=== PATIENT | female | born 1995 | race Caucasian/White ===

== ENCOUNTER 2016-10-02 17:04 | Inpatient (IN) | payer BC, MEDICAID ==
[2016-10-02] MEDS ORDERED: Carboprost Tromethamine 250 MCG/1 ML Amp IM PRN (17:15)
[2016-10-02] MEDS ORDERED: Lidocaine 1% 50 ML MDV INJECT PRN (17:15)
[2016-10-02] MEDS ORDERED: Sodium Chloride 0.9% 2.5 ML Syringe FLUSH PRN (17:15)
[2016-10-02] MEDS ORDERED: Butorphanol 1 MG/ML SDV IVPUSH PRN (17:15)
[2016-10-02] MEDS ORDERED: Misoprostol 200 MCG Tab PO PRN (17:15)
[2016-10-02] MEDS ORDERED: Sodium Chloride 0.9% 10 ML Syringe FLUSH PRN (17:15)
[2016-10-02] MEDS ORDERED: Nalbuphine 10 MG/1 ML Vial IVPUSH PRN (17:15)
[2016-10-02] MEDS ORDERED: Water For Irrigation,Sterile 1,000 ML Container IRR PRN (17:15)
[2016-10-02] MEDS ORDERED: Methylergonovine 0.2 MG/1 ML Amp IM PRN (17:15)
[2016-10-02] MEDS ORDERED: Oxytocin/Lactated Ringers 30 UNIT/500 ML BAG IV SCH ×2 (17:15→19:30)
[2016-10-02] MEDS: Lactated Ringers 1,000 ML IV SCH ×2 (19:35→23:10)
[2016-10-02] MEDS ORDERED: fentaNYL 100 MCG/2 ML SDV ONE (23:03)
[2016-10-02] MEDS ORDERED: Ropivacaine HCl/PF 100 ML ONE (23:03)
--- NOTE | 2016-10-03 00:01 | PCM.PREANE ---
Preanesthetic Assessment - Anesthesia/Transfusion/Family Hx Anesthesia History: No Prior Anesthesia Transfusion History: No Prior Transfusion(s) - Physical Assessment Height: 5 ft 3.5 in Weight: 150 lb ASA Class: 2 Mental Status: Alert & Oriented x3 Airway Class: Mallampati = 2 Dentition: Reports: Normal Dentition ROM/Head Extension: Full Lungs: Clear to auscultation, Normal respiratory effort Cardiovascular: Regular Rate, Regular Rhythm - Lab Values: Laboratory Last Values WBC 9.34 K/uL (4.0-11.0) 10/02/16 17:30 RBC 4.02 M/uL (4.30-5.90) L 10/02/16 17:30 Hgb 12.0 g/dL (12.0-16.0) 10/02/16 17:30 Hct 36.1 % (36.0-46.0) 10/02/16 17:30 MCV 89.8 fL (80.0-98.0) 10/02/16 17:30 MCH 29.9 pg (27.0-32.0) 10/02/16 17:30 MCHC 33.2 g/dL (31.0-37.0) 10/02/16 17:30 RDW Std Deviation 41.6 fl (28.0-62.0) 10/02/16 17:30 RDW Coeff of Mell 13 % (11.0-15.0) 10/02/16 17:30 Plt Count 246 K/uL (150-400) 10/02/16 17:30 MPV 10.40 fL (7.40-12.00) 10/02/16 17:30 Nucleated RBC % 0.0 /100WBC 10/02/16 17:30 Nucleated RBCs # 0 K/uL 10/02/16 17:30 Blood Type B POSITIVE 10/02/16 17:30 Antibody Screen POSITIVE 10/02/16 17:30 Prewarmed Antibody Srcn NEGATIVE 10/02/16 17:30 Antibody Identification Cancelled 10/02/16 17:30 Cold Antibody Screen POSITIVE 10/02/16 17:30 - Allergies Allergies/Adverse Reactions: Allergies Allergy/AdvReac Type Severity Reaction Status Date / Time No Known Allergies Allergy Verified 05/04/14 15:43 - Blood Blood Available: No Product(s) Available: None - Anesthesia Plan Free Text/Narrative:: Labor Epidural Pre-Op Medication Ordered: None - Acknowledgements Anesthesia Type Planned: Epidural Pt an Appropriate Candidate for the Planned Anesthesia: Yes Alternatives and Risks of Anesthesia Discussed w Pt/Guardian: Yes Pt/Guardian Understands and Agrees with Anesthesia Plan: Yes PreAnesthesia Questionnaire HEENT History: Reports: Other (see below) Other HEENT History: Seasonal allergies 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 Hematologic History: Reports: Anemia - Infectious Disease History Infectious Disease History: Reports: Chicken pox, Measles - Past Surgical History HEENT Surgical History: Reports: None - SUBSTANCE USE Smoking Status *Q: Current Every Day Smoker Tobacco Use Within Last Twelve Months: Cigarettes Second Hand Smoke Exposure: Yes Recreational Drug Use History: Yes Recreational Drug Type: Reports: Marijuana/Hashish Recreational Drug Last Use: 10/2015 - CURRENT (IN HOUSE) MEDS Current Meds: Current Medications Butorphanol Tartrate (Stadol) 1 mg IVPUSH Q1H PRN PRN Reason: Pain Last Admin: 10/02/16 22:17 Dose: 1 mg Carboprost Tromethamine (Hemabate Ds) 250 mcg IM ASDIRECTED PRN PRN Reason: Post Hemorrhage Lactated Ringer's (Ringers, Lactated) 1,000 mls @ 150 mls/hr IV ASDIRECTED ASHLY Last Admin: 10/02/16 23:10 Dose: 999 mls/hr Oxytocin/Lactated Ringer's (Pitocin In Lr 30 Units/500 Ml) 30 unit in 500 mls @ 2 mls/hr IV TITRATE ASHLY; 2 MUNITS/MIN PRN Reason: Protocol Last Titration: 10/02/16 21:40 Dose: 10 munits/min, 10 mls/hr Lidocaine HCl (Xylocaine 1%) 50 ml INJECT .ONCE PRN PRN Reason: Laceration repair Methylergonovine Maleate (Methergine) 0.2 mg IM ASDIRECTED PRN PRN Reason: Post Hemorrhage Misoprostol (Cytotec) 200 mcg PO .ONCE PRN PRN Reason: Post Hemorrhage Sodium Chloride (Saline Flush) 10 ml FLUSH ASDIRECTED PRN PRN Reason: Keep Vein Open Sodium Chloride (Saline Flush) 2.5 ml FLUSH ASDIRECTED PRN PRN Reason: Keep Vein Open Sterile Water (Sterile Water For Irrigation) 1,000 ml IRR ASDIRECTED PRN PRN Reason: delivery Discontinued Medications Fentanyl (Sublimaze) Confirm Administered Dose 100 mcg .ROUTE .STK-MED ONE Stop: 10/02/16 23:04 Oxytocin/Lactated Ringer's (Pitocin In Lr 30 Units/500 Ml) 30 unit in 500 mls @ 999 mls/hr IV TITRATE ASHLY PRN Reason: 999 MUNITS/MIN Stop: 10/02/16 17:46 Ropivacaine (Naropin 0.2%) Confirm Administered Dose 100 mls @ as directed .ROUTE .STK-MED ONE Stop: 10/02/16 23:04 Nalbuphine HCl (Nubain) 10 mg IVPUSH Q1H PRN PRN Reason: Pain (severe 7-10) Stop: 10/02/16 19:16
[2016-10-03] MEDS: Lactated Ringers 1,000 ML IV SCH (00:02)
[2016-10-03] MEDS ORDERED: Ondansetron 4 MG/2 ML SDV IVPUSH ONE (06:28)
[2016-10-03] MEDS ORDERED: Ropivacaine HCl/PF 100 ML ONE (07:33)
[2016-10-03] MEDS ORDERED: fentaNYL 100 MCG/2 ML SDV ONE (07:33)
[2016-10-03] MEDS ORDERED: Witch Hazel Medicated Pads 40/Jar TOP PRN (11:05)
[2016-10-03] MEDS ORDERED: Ibuprofen 400 MG Tab PO PRN (11:05)
[2016-10-03] MEDS ORDERED: Bisacodyl 10 MG Supp RECTAL PRN (11:05)
[2016-10-03] MEDS ORDERED: oxyCODONE 5 MG Tab PO PRN (11:05)
[2016-10-03] MEDS ORDERED: Docusate Sodium 100 MG Cap PO PRN (11:05)
[2016-10-03] MEDS ORDERED: Acetaminophen 500 MG Tab PO PRN ×2 (11:05)
[2016-10-03] MEDS ORDERED: Benzocaine/Menthol 20%-0.5% Spray 78 GM Cannister TOP PRN (11:05)
[2016-10-03] MEDS ORDERED: Lanolin 100% Cream 7 GM Tube TOP PRN (11:05)
[2016-10-03] MEDS ORDERED: Oxytocin/Lactated Ringers 30 UNIT/500 ML BAG ONE (11:09)
[2016-10-03] MEDS: Ibuprofen 800 MG Tab PO PRN (12:23)
--- NOTE | 2016-10-03 15:02 | PCM48HPAN ---
Post Anesthesia Note - EVALUATION WITHIN 48HRS OF ANESTHETIC Vital Signs in Normal Range: Yes Patient Participated in Evaluation: Yes Respiratory Function Stable: Yes Airway Patent: Yes Cardiovascular Function Stable: Yes Hydration Status Stable: Yes Pain Control Satisfactory: Yes Nausea and Vomiting Control Satisfactory: Yes Mental Status Recovered: Yes
--- NOTE | 2016-10-03 18:58 | OR ---
SURGEON: Kika Gomez MD DATE OF PROCEDURE: 10/03/2016 PREOPERATIVE DIAGNOSES: 1. Term at 39 weeks and 5 days. 2. Premature rupture of membrane at term. POSTOPERATIVE DIAGNOSES: 1. Term at 39 weeks and 5 days. 2. Premature rupture of membrane at term. 3. Delivered. PROCEDURES: 1. Spontaneous vaginal delivery. 2. Repair of perineal laceration. ANESTHESIA: Epidural. ESTIMATED BLOOD LOSS: 100 mL. COMPLICATIONS: None. DISPOSITION: Mother and baby stable in Labor and Delivery room, bonding. FINDINGS: Female , weight 3200 grams, score 8 and 9 at 1 and 5 minutes respectively. Grossly normal placenta with 3-vessel cord. First-degree vaginal laceration. BRIEF HISTORY: Pearl is a 21-year-old, G2, P0, who presented for routine clinic appointment on the 02 of October at 39 weeks and 4 days gestation, complaining of irregular contractions and requested to have a membrane sweep performed. Spontaneous rupture of membrane occurred during the membrane sweep, at the time , she was 1 cm, 70% effaced, station -2, clear amniotic fluid. Her care has been otherwise uncomplicated. GBS negative. She was then sent over to Labor and Delivery for monitoring. With category 1 tracing, she was allowed to ambulate and after approximately 6 hours after the rupture of membranes, she was re-evaluated and found to have made no cervical change, at which time, oxytocin was commenced for induction of labor. She requested and received epidural for pain management. She made steady progress to full dilatation at about 7:00 a.m. this morning and then commenced pushing after an hour of laboring down. She pushed quite well bringing the baby's head down to a +4 station and was set up for delivery in modified dorsal lithotomy position. heart tracing remained category 1. DESCRIPTION OF PROCEDURE: She had a spontaneous vaginal delivery of a live female in direct occipital posterior position, clear fluid, no nuchal cord. Anterior and posterior shoulders and the rest of the baby were delivered without difficulty. Baby was vigorous and cried spontaneously at . The baby was delivered onto the maternal abdomen. The cord was double clamped after it had ceased pulsating and subsequently cut by the maternal grandmother. With delivery of the , oxytocin infusion was changed to titration for active management of third stage of labor. Cord blood and gas samples were obtained. Placenta was delivered by controlled cord traction, appeared to be complete and intact. Examination of the perineum revealed a small vaginal mucosa laceration, which was repaired with 2-0 Polysorb in a continuous nonlocking fashion. The repair was hemostatic. Uterine massage was performed. The uterus was found to be well contracted, below the umbilicus. The patient tolerated the procedure well. Sponge, instrument, and needle counts were correct at the end of the delivery. ADUMVIV / CHELSIL /[id number] MTDD
[2016-10-04] MEDS: Ibuprofen 800 MG Tab PO PRN (02:55)
[2016-10-04 09:57] VITALS: BP 108/51
--- NOTE | 2016-10-04 12:11 | PCM.PNPP ---
- General Info Date of Service: 10/04/16 Functional Status: Reports: pain controlled, tolerating diet, ambulating, urinating - Review of Systems General: Reports: No Symptoms HEENT: Reports: no symptoms Pulmonary: Reports: no symptoms Cardiovascular: Reports: No Symptoms Gastrointestinal: Reports: No symptoms Genitourinary: Reports: no symptoms Musculoskeletal: Reports: no symptoms Skin: Reports: no symptoms Neurological: Reports: No Symptoms Psychiatric: Reports: no symptoms - General Info Date of Service: 10/04/16 - Patient Data Vital Signs - most recent: Last Vital Signs Temp 36.6 C 10/04/16 07:30 Pulse 64 10/04/16 07:30 Resp 17 10/04/16 07:30 BP 108/51 L 10/04/16 07:30 Pulse Ox 96 10/04/16 07:30 Weight - most recent: 68.039 kg Lab Results - last 24 hrs: Laboratory Results - last 24 hr 10/04/16 Range/Units 06:05 Hgb 10.2 L (12.0-16.0) g/dL Hct 30.9 L (36.0-46.0) % Med Orders - Current: Current Medications Acetaminophen (Tylenol Extra Strength) 500 mg PO Q4H PRN PRN Reason: Pain Acetaminophen (Tylenol Extra Strength) 1,000 mg PO Q4H PRN PRN Reason: Pain Benzocaine/Menthol (Dermoplast Pain Relief 20%-0.5% [place]) 78 gm TOP ASDIRECTED PRN PRN Reason: Perineal Comfort Measure Last Admin: 10/03/16 12:23 Dose: 1 can Bisacodyl (Dulcolax) 10 mg RECTAL .ONCE PRN PRN Reason: Constipation Docusate Sodium (Colace) 100 mg PO BID PRN PRN Reason: Constipation Last Admin: 10/03/16 12:24 Dose: 100 mg Emollient Ointment (Lansinoh Hpa) 0 gm TOP ASDIRECTED PRN PRN Reason: Sore Nipples Last Admin: 10/03/16 12:23 Dose: 1 tube Ibuprofen (Motrin) 400 mg PO Q4H PRN PRN Reason: Pain Ibuprofen (Motrin) 800 mg PO Q6H PRN PRN Reason: Pain Last Admin: 10/04/16 02:55 Dose: 800 mg Oxycodone HCl (Oxycodone) 5 mg PO Q2H PRN PRN Reason: Pain Last Admin: 10/04/16 02:55 Dose: 5 mg Witch Shelley (Tucks) 1 pad TOP ASDIRECTED PRN PRN Reason: comfort care Last Admin: 10/03/16 12:23 Dose: 1 tub Discontinued Medications Butorphanol Tartrate (Stadol) 1 mg IVPUSH Q1H PRN PRN Reason: Pain Last Admin: 10/02/16 22:17 Dose: 1 mg Carboprost Tromethamine (Hemabate Ds) 250 mcg IM ASDIRECTED PRN PRN Reason: Post Hemorrhage Fentanyl (Sublimaze) Confirm Administered Dose 100 mcg .ROUTE .STK-MED ONE Stop: 10/02/16 23:04 Last Admin: 10/03/16 08:50 Dose: Not Given Fentanyl (Sublimaze) Confirm Administered Dose 200 mcg .ROUTE .STK-MED ONE Stop: 10/03/16 07:34 Last Admin: 10/03/16 08:50 Dose: Not Given Lactated Ringer's (Ringers, Lactated) 1,000 mls @ 150 mls/hr IV ASDIRECTED ASHLY Last Admin: 10/03/16 00:02 Dose: 999 mls/hr Oxytocin/Lactated Ringer's (Pitocin In Lr 30 Units/500 Ml) 30 unit in 500 mls @ 999 mls/hr IV TITRATE ASHLY PRN Reason: 999 MUNITS/MIN Stop: 10/02/16 17:46 Last Admin: 10/03/16 11:19 Dose: Not Given Oxytocin/Lactated Ringer's (Pitocin In Lr 30 Units/500 Ml) 30 unit in 500 mls @ 2 mls/hr IV TITRATE ASHLY; 2 MUNITS/MIN PRN Reason: Protocol Last Titration: 10/03/16 08:38 Dose: 16 munits/min, 16 mls/hr Ropivacaine (Naropin 0.2%) Confirm Administered Dose 100 mls @ as directed .ROUTE .STK-MED ONE Stop: 10/02/16 23:04 Last Admin: 10/03/16 08:50 Dose: Not Given Ropivacaine (Naropin 0.2%) Confirm Administered Dose 100 mls @ as directed .ROUTE .STK-MED ONE Stop: 10/03/16 07:34 Last Admin: 10/03/16 08:50 Dose: Not Given Oxytocin/Lactated Ringer's (Pitocin In Lr 30 Units/500 Ml) Confirm Administered Dose 30 unit in 500 mls @ as directed .ROUTE .STK-MED ONE Stop: 10/03/16 11:10 Last Admin: 10/03/16 11:19 Dose: 500 unit Lidocaine HCl (Xylocaine 1%) 50 ml INJECT .ONCE PRN PRN Reason: Laceration repair Methylergonovine Maleate (Methergine) 0.2 mg IM ASDIRECTED PRN PRN Reason: Post Hemorrhage Misoprostol (Cytotec) 200 mcg PO .ONCE PRN PRN Reason: Post Hemorrhage Nalbuphine HCl (Nubain) 10 mg IVPUSH Q1H PRN PRN Reason: Pain (severe 7-10) Stop: 10/02/16 19:16 Ondansetron HCl (Zofran) 4 mg IVPUSH ONETIME ONE Stop: 10/03/16 06:29 Last Admin: 10/03/16 06:34 Dose: 4 mg Sodium Chloride (Saline Flush) 10 ml FLUSH ASDIRECTED PRN PRN Reason: Keep Vein Open Sodium Chloride (Saline Flush) 2.5 ml FLUSH ASDIRECTED PRN PRN Reason: Keep Vein Open Sterile Water (Sterile Water For Irrigation) 1,000 ml IRR ASDIRECTED PRN PRN Reason: delivery Last Admin: 10/03/16 10:40 Dose: 1,000 ml - Infant Interaction Disposition, : in Room with Family Infant Interaction: Holding Feeding: Attempted ; Nursed Fair/Poor - Recovery Exam Fundal Tone: Firm Fundal Level: 1 Fingerbreadths Below Umbilicus Fundal Placement: Midline Lochia Amount: Scant Lochia Color: Rubra/Red Perineum Description: Intact, Minimal Bruising/Swelling, Other (see below) Other Perinuem Description: Small vaginal laceration Episiotomy/Laceration: Approximated Bladder Status: Voiding Urinary Elimination: Voided - Exam General: alert, oriented Neck: supple Lungs: Clear to auscultation, Normal respiratory effort Cardiovascular: Regular Rate, Regular Rhythm Abdomen: bowel sounds present, soft, no tenderness Extremities: no calf tenderness Skin: warm, dry, intact Wound/Incisions: healing well Neurological: no new focal deficit Psy/Mental Status: alert, normal affect, normal mood - Problem List & Annotations (1) Vaginal delivery SNOMED Code(s): 448576114 Code(s): O80 - ENCOUNTER FOR FULL-TERM UNCOMPLICATED DELIVERY Status: Acute Current Visit: Yes - Problem List Review Problem List Initiated/Reviewed/Updated: Yes - My Orders Last 24 Hours: My Active Orders 10/04/16 12:09 Ready for Discharge [RC] PER UNIT ROUTINE - Assessment Assessment:: PPD#1 S/p SAVD Doing well Desires discharge home today - Plan Plan:: Discharge home today with follow up in 6wks Pelvic rest for 6wks Bleeding precautions Infection precautions given Thrombotic precautions blues/depression precautions
== END 2016-10-04 14:35 | disposition home or self-care (01) | DRG 560 ==
LOC: MW.OBCHECK 17:04 → MW.OB 17:10 → MW.OBCHECK 10-03 09:04 → MW.OB 10-03 09:05 → OBSVTOIN 10-03 10:40 → MW.OB 10-03 10:40
PROVIDERS: ADMIT Obstetrics & Gynecology; ATTEND Obstetrics & Gynecology
PROC: 10E0XZZ Delivery of Products of Conception, External Approach (ICD-10-PCS; principal; 2016-10-03)
PROC: 0HQ9XZZ Repair Perineum Skin, External Approach (ICD-10-PCS; 2016-10-03)
DX: O42.02 Full-term premature rupture of membranes, onset of labor within 24 hours of rupture (principal); O70.0 First degree perineal laceration during delivery; Z3A.39 39 weeks gestation of pregnancy; Z37.0 Single live birth
CPT/HCPCS: 01967; 36415; 59025; 85014; 85018; 85027; 86156; 86850; 86900; 86901; A9270-GY; J0595; J2405; J7120

== ENCOUNTER 2019-07-17 20:51 | Inpatient (IN) | payer MEDICAID ==
[2019-07-17] MEDS ORDERED: Butorphanol 1 MG/ML SDV IVPUSH PRN (21:19)
[2019-07-17] MEDS ORDERED: Sodium Chloride 0.9% 10 ML Syringe FLUSH PRN (21:19)
[2019-07-17] MEDS ORDERED: Water For Irrigation,Sterile 1,000 ML Container IRR PRN (21:19)
[2019-07-17] MEDS ORDERED: Sodium Chloride 0.9% 10 ML SDV IV PRN (21:19)
[2019-07-17] MEDS ORDERED: Tranexamic Acid 1,000 MG in Sodium Chloride 0.9% 100 ML IV PRN (21:19)
[2019-07-17] MEDS ORDERED: Misoprostol 200 MCG Tab PO PRN (21:19)
[2019-07-17] MEDS ORDERED: Lidocaine 1% 50 ML MDV INJECT PRN (21:19)
[2019-07-17] MEDS ORDERED: Methylergonovine 0.2 MG/1 ML Amp IM PRN (21:19)
[2019-07-17] MEDS ORDERED: Sodium Chloride 0.9% 2.5 ML Syringe FLUSH PRN (21:19)
[2019-07-17] MEDS ORDERED: Ondansetron 4 MG/2 ML SDV IVPUSH PRN (21:19)
[2019-07-17] MEDS ORDERED: Carboprost Tromethamine 250 MCG/1 ML Amp IM PRN (21:19)
[2019-07-17] MEDS ORDERED: Terbutaline 1 MG/ML SDV SUBCUT PRN (21:19)
[2019-07-17] MEDS ORDERED: Nalbuphine 10 MG/1 ML Vial IVPUSH PRN (21:19)
[2019-07-17] MEDS ORDERED: Oxytocin/0.9 % Sodium Chloride 30 UNIT/500 ML BAG IV SCH ×2 (21:30)
[2019-07-17] MEDS: Misoprostol 25 MCG (1/4 of 100 MCG) Tab VAG PRN (21:53)
[2019-07-17 22:16] LABS: BLOOD UREA NITROGEN,BUN 7 mg/dL (7.0-18.0); CARBON DIOXIDE,CO2 23.6 mmol/L (21.0-32.0); CHLORIDE,CL 104 mmol/L (98-107); GLUCOSE RANDOM 127 mg/dL (74-106); POTASSIUM,K 3.5 mmol/L (3.5-5.1); SODIUM,NA 139 mmol/L (136-145)
[2019-07-18] MEDS: Misoprostol 25 MCG (1/4 of 100 MCG) Tab VAG PRN (02:04)
[2019-07-18] MEDS: Lactated Ringers 1,000 ML IV SCH ×3 (06:15→10:08)
[2019-07-18] MEDS ORDERED: Ropivacaine HCl/PF 100 ML ONE (08:05)
[2019-07-18] MEDS ORDERED: fentaNYL 100 MCG/2 ML SDV ONE (08:05)
--- NOTE | 2019-07-18 08:26 | PCM.PREANE ---
Preanesthetic Assessment - Anesthesia/Transfusion/Family Hx Anesthesia History: Prior Anesthesia Without Reaction Family History of Anesthesia Reaction: No Transfusion History: No Prior Transfusion(s) - Physical Assessment NPO Status Date: 07/18/19 NPO Status Time: 05:00 Height: 1.6 m Weight: 65.771 kg ASA Class: 1 - Lab Values: Laboratory Last Values WBC 10.15 K/uL (4.0-11.0) 07/17/19 21:45 RBC 3.74 M/uL (4.30-5.90) L 07/17/19 21:45 Hgb 11.6 g/dL (12.0-16.0) L 07/17/19 21:45 Hct 32.6 % (36.0-46.0) L 07/17/19 21:45 MCV 87.2 fL (80.0-98.0) 07/17/19 21:45 MCH 31.0 pg (27.0-32.0) 07/17/19 21:45 MCHC 35.6 g/dL (31.0-37.0) 07/17/19 21:45 RDW Std Deviation 39.3 fl (28.0-62.0) 07/17/19 21:45 RDW Coeff of Mell 12 % (11.0-15.0) 07/17/19 21:45 Plt Count 277 K/uL (150-400) 07/17/19 21:45 MPV 10.30 fL (7.40-12.00) 07/17/19 21:45 Nucleated RBC % 0.0 /100WBC 07/17/19 21:45 Nucleated RBCs # 0 K/uL 07/17/19 21:45 Sodium 139 mmol/L (136-145) 07/17/19 21:45 Potassium 3.5 mmol/L (3.5-5.1) 07/17/19 21:45 Chloride 104 mmol/L (98-107) 07/17/19 21:45 Carbon Dioxide 23.6 mmol/L (21.0-32.0) 07/17/19 21:45 BUN 7 mg/dL (7.0-18.0) 07/17/19 21:45 Creatinine 0.7 mg/dL (0.6-1.0) 07/17/19 21:45 Est Cr Clr Drug Dosing 101.63 mL/min 07/17/19 21:45 Estimated GFR (MDRD) > 60.0 ml/min 07/17/19 21:45 Glucose 127 mg/dL (74-106) H 07/17/19 21:45 Calcium 8.9 mg/dL (8.5-10.1) 07/17/19 21:45 Total Bilirubin 0.3 mg/dL (0.2-1.0) 07/17/19 21:45 AST 30 IU/L (15-37) 07/17/19 21:45 ALT 47 IU/L (14-63) 07/17/19 21:45 Alkaline Phosphatase 237 U/L (46-116) H 07/17/19 21:45 Total Protein 6.9 g/dL (6.4-8.2) 07/17/19 21:45 Albumin 2.7 g/dL (3.4-5.0) L 07/17/19 21:45 Globulin 4.2 g/dL (2.6-4.0) H 07/17/19 21:45 Albumin/Globulin Ratio 0.6 (0.9-1.6) L 07/17/19 21:45 Blood Type B POSITIVE 07/17/19 21:45 Antibody Screen POSITIVE 07/17/19 21:45 Prewarmed Antibody Srcn NEGATIVE 07/17/19 21:45 Antibody Identification Cancelled 07/17/19 21:45 Cold Antibody Screen POSITIVE 07/17/19 21:45 Crossmatch Prewarmed See Detail 07/17/19 21:45 - Allergies Allergies/Adverse Reactions: Allergies Allergy/AdvReac Type Severity Reaction Status Date / Time No Known Allergies Allergy Verified 07/17/19 21:18 - Acknowledgements Anesthesia Type Planned: Epidural Pt an Appropriate Candidate for the Planned Anesthesia: Yes Alternatives and Risks of Anesthesia Discussed w Pt/Guardian: Yes Pt/Guardian Understands and Agrees with Anesthesia Plan: Yes PreAnesthesia Questionnaire HEENT History: Reports: Other (See Below) Other HEENT History: Seasonal allergies 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 Hematologic History: Reports: Anemia - Infectious Disease History Infectious Disease History: Reports: Chicken Pox, Measles - Past Surgical History Musculoskeletal Surgical History: Reports: Carpal Tunnel - SUBSTANCE USE Smoking Status *Q: Current Every Day Smoker Tobacco Use Within Last Twelve Months: Cigarettes Recreational Drug Use History: No - HOME MEDS Home Medications: Home Meds Vit 90/Iron Fum/Folic [ Formula] 1 each PO 10/03/16 [History] - CURRENT (IN HOUSE) MEDS Current Meds: Current Medications Butorphanol Tartrate (Stadol) 1 mg IVPUSH Q1H PRN PRN Reason: Pain Carboprost Tromethamine (Hemabate Ds) 250 mcg IM ASDIRECTED PRN PRN Reason: Post Hemorrhage Lactated Ringer's (Ringers, Lactated) 1,000 mls @ 150 mls/hr IV ASDIRECTED ASHLY Last Admin: 07/18/19 06:15 Dose: 150 mls/hr Oxytocin/Sodium Chloride (Oxytocin 30 Unit/500 Ml-Ns) 30 unit in 500 mls @ 500 mls/hr IV TITRATE ASHLY Oxytocin/Sodium Chloride (Oxytocin 30 Unit/500 Ml-Ns) 30 unit in 500 mls @ 2 mls/hr IV TITRATE ASHLY; Protocol Last Titration: 07/18/19 06:56 Dose: 6 munits/min, 6 mls/hr Tranexamic Acid 1,000 mg/ (Sodium Chloride) 110 mls @ 660 mls/hr IV ONETIME PRN PRN Reason: Bleeding Lidocaine HCl (Xylocaine 1%) 50 ml INJECT ONETIME PRN PRN Reason: Laceration repair Methylergonovine Maleate (Methergine) 0.2 mg IM ASDIRECTED PRN PRN Reason: Post Hemorrhage Misoprostol (Cytotec) 200 mcg PO ONETIME PRN PRN Reason: Post Hemorrhage Misoprostol (Cytotec) 25 mcg VAG Q4H PRN PRN Reason: Cervical Ripening Last Admin: 07/18/19 02:04 Dose: 25 mcg Nalbuphine HCl (Nubain) 10 mg IVPUSH Q1H PRN PRN Reason: Pain (severe 7-10) Ondansetron HCl (Zofran) 4 mg IVPUSH Q6H PRN PRN Reason: Nausea/Vomiting Sodium Chloride (Saline Flush) 10 ml FLUSH ASDIRECTED PRN PRN Reason: Keep Vein Open Sodium Chloride (Saline Flush) 2.5 ml FLUSH ASDIRECTED PRN PRN Reason: Keep Vein Open Sodium Chloride (Normal Saline) 10 ml IV ASDIRECTED PRN PRN Reason: IV Use Sterile Water (Sterile Water For Irrigation) 1,000 ml IRR ASDIRECTED PRN PRN Reason: delivery Terbutaline Sulfate (Brethine) 0.25 mg SUBCUT ASDIRECTED PRN PRN Reason: Tacysystole Discontinued Medications Fentanyl (Sublimaze) Confirm Administered Dose 100 mcg .ROUTE .STK-MED ONE Stop: 07/18/19 08:06 Ropivacaine (Naropin 0.2%) Confirm Administered Dose 100 mls @ as directed .ROUTE .STK-MED ONE Stop: 07/18/19 08:06
--- NOTE | 2019-07-18 08:29 | PCM.PRNOTE ---
- Free Text/Narrative Note: Anes NOte Patietn requests epidural for L&D> Sitting position. Level L3-L4 midline approach. Sterile technique Chloraprep scrub to lumbar area. Sterile fenestrated drape applied. Epidural space easily achieved single attempt with ease using JAZMIN technique. JAZMIN at 3 cm. Cath threaded 5 cm with ease. Cat secured at skin at 9 cm using sterile clear adhesive dressing. Test 0819 3 cc 1.5% lido with epi negative. 0823 load 10 cc 0.2% ropiviciane with 1 mcg cc fentanyl in slow divided doses 0826 pump started with 90 cc same solution at 8 cc hr with 6 cc q 20 min prn bolus. Honorio well. Time with patient [id number] Tushar Padron CLOTHING MAN
[2019-07-18] MEDS ORDERED: Benzocaine/Menthol 20%-0.5% Spray 78 GM Cannister TOP PRN (11:38)
[2019-07-18] MEDS ORDERED: Lanolin 100% Cream 7 GM Tube TOP PRN (11:38)
[2019-07-18] MEDS ORDERED: Acetaminophen 500 MG Tab PO PRN ×2 (11:38)
[2019-07-18] MEDS ORDERED: Ibuprofen 400 MG Tab PO PRN (11:38)
[2019-07-18] MEDS ORDERED: Bisacodyl 10 MG Supp RECTAL PRN (11:38)
[2019-07-18] MEDS ORDERED: Witch Hazel Medicated Pads 40/Jar TOP PRN (11:38)
[2019-07-18] MEDS ORDERED: Docusate Sodium 100 MG Cap PO PRN (11:38)
--- NOTE | 2019-07-18 14:46 | PCM.POSTAN ---
POST ANESTHESIA ASSESSMENT - MENTAL STATUS Mental Status: Alert, Oriented - RESPIRATORY Respiratory Status: Respiratory Rate WNL, Airway Patent, O2 Saturation Stable - CARDIOVASCULAR CV Status: Pulse Rate WNL, Blood Pressure Stable - GASTROINTESTINAL GI Status: No Symptoms - POST OP HYDRATION Hydration Status: Adequate & Stable
[2019-07-18] MEDS: Ibuprofen 800 MG Tab PO PRN (17:09)
--- NOTE | 2019-07-18 17:15 | OR ---
SURGEON: Luca Joshi MD DATE OF PROCEDURE: 07/18/2019 INDICATION: A 24-year-old G3, P 1-0-1-1, female at 39 weeks and 2 days, admitted for elective induction of labor. The patient progressed with Cytotec and Pitocin. She received an epidural for pain control. Had AROM with clear fluid. The patient progressed to fully dilated and started pushing with contractions. She had uncomplicated . PREOPERATIVE DIAGNOSES: 1. Ford intrauterine at 39 weeks and 2 days. 2. Active second stage of labor. POSTOPERATIVE DIAGNOSES: 1. Ford intrauterine at 39 weeks and 2 days. 2. Active second stage of labor. PROCEDURE PERFORMED: Normal spontaneous vaginal delivery. ANESTHESIA: Epidural anesthesia. ESTIMATED BLOOD LOSS: 200 mL. FINDINGS: Viable female infant, scores 8 and 9, and weight of 3450g. DESCRIPTION OF PROCEDURE: The patient pushed with contractions for approximately 20 minutes. head delivered in occiput anterior position over intact perineum. head restituted ROT. No nuchal cord was noted. Anterior shoulder was delivered easily followed by the posterior shoulder and remaining body. The baby was placed on maternal chest and evaluated by awaiting nursery staff. Baby was pink, crying, and moving all extremities immediately after delivery. The cord was clamped and cut after 60 seconds and no longer pulsating. Umbilical cord gases were obtained. The placenta was removed with gentle traction on the umbilical cord. Perineum was examined and there were no lacerations. Fundal massage was performed, which was firm and below the umbilicus, and the bleeding was minimal. She tolerated the procedure well and was given care instructions. JACKIE / ADOLFO /[id number] BUCKY
--- NOTE | 2019-07-19 05:04 | PCM48HPAN ---
Post Anesthesia Note - EVALUATION WITHIN 48HRS OF ANESTHETIC Vital Signs in Normal Range: Yes Patient Participated in Evaluation: Yes Respiratory Function Stable: Yes Airway Patent: Yes Cardiovascular Function Stable: Yes Hydration Status Stable: Yes Pain Control Satisfactory: Yes Nausea and Vomiting Control Satisfactory: Yes Mental Status Recovered: Yes Vital Signs: Last Vital Signs Temp 36.7 C 07/18/19 20:00 Pulse 62 07/18/19 20:00 Resp 16 07/18/19 20:00 BP 126/74 07/18/19 20:00 Pulse Ox 98 07/18/19 20:00
--- NOTE | 2019-07-19 09:03 | PCM.PNPP ---
- General Info Date of Service: 07/19/19 Functional Status: Reports: Pain Controlled, Tolerating Diet, Ambulating, Urinating - Review of Systems General: Reports: No Symptoms HEENT: Reports: No Symptoms Pulmonary: Reports: No Symptoms Cardiovascular: Reports: No Symptoms Gastrointestinal: Reports: No Symptoms Genitourinary: Reports: No Symptoms Musculoskeletal: Reports: No Symptoms Skin: Reports: No Symptoms Neurological: Reports: No Symptoms Psychiatric: Reports: No Symptoms - Patient Data Vital Signs - Most Recent: Last Vital Signs Temp 36.7 C 07/18/19 20:00 Pulse 62 07/18/19 20:00 Resp 16 07/18/19 20:00 BP 126/74 07/18/19 20:00 Pulse Ox 98 07/18/19 20:00 Weight - Most Recent: 145 lb Lab Results - Last 24 Hours: Laboratory Results - last 24 hr 07/19/19 Range/Units 05:30 Hgb 10.5 L (12.0-16.0) g/dL Hct 31.7 L (36.0-46.0) % Med Orders - Current: Current Medications Acetaminophen (Tylenol Extra Strength) 500 mg PO Q4H PRN PRN Reason: Pain Acetaminophen (Tylenol Extra Strength) 1,000 mg PO Q4H PRN PRN Reason: Pain Last Admin: 07/18/19 20:10 Dose: 1,000 mg Benzocaine/Menthol (Dermoplast Pain Relief 20%-0.5% Independence) 78 gm TOP ASDIRECTED PRN PRN Reason: Perineal Comfort Measure Bisacodyl (Dulcolax) 10 mg RECTAL ONETIME PRN PRN Reason: Constipation Butorphanol Tartrate (Stadol) 1 mg IVPUSH Q1H PRN PRN Reason: Pain Carboprost Tromethamine (Hemabate Ds) 250 mcg IM ASDIRECTED PRN PRN Reason: Post Hemorrhage Docusate Sodium (Colace) 100 mg PO BID PRN PRN Reason: Constipation Emollient Ointment (Lansinoh Hpa) 0 gm TOP ASDIRECTED PRN PRN Reason: Sore Nipples Lactated Ringer's (Ringers, Lactated) 1,000 mls @ 150 mls/hr IV ASDIRECTED ASHLY Last Admin: 07/18/19 10:08 Dose: 150 mls/hr Oxytocin/Sodium Chloride (Oxytocin 30 Unit/500 Ml-Ns) 30 unit in 500 mls @ 500 mls/hr IV TITRATE ASHLY Oxytocin/Sodium Chloride (Oxytocin 30 Unit/500 Ml-Ns) 30 unit in 500 mls @ 2 mls/hr IV TITRATE ASHLY; Protocol Last Titration: 07/18/19 11:19 Dose: 999 munits/min, 999 mls/hr Tranexamic Acid 1,000 mg/ (Sodium Chloride) 110 mls @ 660 mls/hr IV ONETIME PRN PRN Reason: Bleeding Ibuprofen (Motrin) 400 mg PO Q4H PRN PRN Reason: Pain Ibuprofen (Motrin) 800 mg PO Q6H PRN PRN Reason: Pain Last Admin: 07/18/19 17:09 Dose: 800 mg Lidocaine HCl (Xylocaine 1%) 50 ml INJECT ONETIME PRN PRN Reason: Laceration repair Methylergonovine Maleate (Methergine) 0.2 mg IM ASDIRECTED PRN PRN Reason: Post Hemorrhage Misoprostol (Cytotec) 200 mcg PO ONETIME PRN PRN Reason: Post Hemorrhage Misoprostol (Cytotec) 25 mcg VAG Q4H PRN PRN Reason: Cervical Ripening Last Admin: 07/18/19 02:04 Dose: 25 mcg Nalbuphine HCl (Nubain) 10 mg IVPUSH Q1H PRN PRN Reason: Pain (severe 7-10) Ondansetron HCl (Zofran) 4 mg IVPUSH Q6H PRN PRN Reason: Nausea/Vomiting Sodium Chloride (Saline Flush) 10 ml FLUSH ASDIRECTED PRN PRN Reason: Keep Vein Open Sodium Chloride (Saline Flush) 2.5 ml FLUSH ASDIRECTED PRN PRN Reason: Keep Vein Open Sodium Chloride (Normal Saline) 10 ml IV ASDIRECTED PRN PRN Reason: IV Use Sterile Water (Sterile Water For Irrigation) 1,000 ml IRR ASDIRECTED PRN PRN Reason: delivery Last Admin: 07/18/19 11:15 Dose: 1,000 ml Terbutaline Sulfate (Brethine) 0.25 mg SUBCUT ASDIRECTED PRN PRN Reason: Tacysystole Witch Shelley (Tucks) 1 pad TOP ASDIRECTED PRN PRN Reason: comfort care Discontinued Medications Fentanyl (Sublimaze) Confirm Administered Dose 100 mcg .ROUTE .STK-MED ONE Stop: 07/18/19 08:06 Last Admin: 07/18/19 18:09 Dose: Not Given Ropivacaine (Naropin 0.2%) Confirm Administered Dose 100 mls @ as directed .ROUTE .STK-MED ONE Stop: 07/18/19 08:06 Last Admin: 07/18/19 18:09 Dose: Not Given - Interaction Disposition, : [place] at Bedside Interaction: Unable to Hold Infant at this Time Feeding: Bottle Fed - Recovery Exam Fundal Tone: Firm Fundal Level: 2 Fingerbreadths Below Umbilicus Fundal Placement: Midline Lochia Amount: Scant Lochia Color: Rubra/Red Perineum Description: Intact, Minimal Bruising/Swelling Episiotomy/Laceration: None Bladder Status: Voiding - Exam General: Alert, Oriented, Cooperative, No Acute Distress HEENT: Pupils Equal, Pupils Reactive Neck: Supple, Trachea Midline, No JVD Lungs: Normal Respiratory Effort GI/Abdominal Exam: Soft, Non-Tender, No Organomegaly, No Distention Extremities: Normal Inspection, Normal Range of Motion, Non-Tender, No Pedal Edema Skin: Warm, Dry, Intact Wound/Incisions: Healing Well Neurological: No New Focal Deficit Psy/Mental Status: Alert, Normal Affect, Normal Mood - Problem List Review Problem List Initiated/Reviewed/Updated: Yes - My Orders Last 24 Hours: My Active Orders 07/18/19 11:38 Patient Status [ADT] Routine May Shower [RC] ASDIRECTED Vital Signs [RC] PER UNIT ROUTINE Acetaminophen [Tylenol Extra Strength] 1,000 mg PO Q4H PRN Acetaminophen [Tylenol Extra Strength] 500 mg PO Q4H PRN Benzocaine/Menthol [Dermoplast Pain Relief 20%-0.5% Independence] 78 gm TOP ASDIRECTED PRN Docusate Sodium [Colace] 100 mg PO BID PRN Ibuprofen [Motrin] 400 mg PO Q4H PRN Ibuprofen [Motrin] 800 mg PO Q6H PRN Lanolin [Lansinoh HPA] See Dose Instructions TOP ASDIRECTED PRN Witch Shelley [Tucks] 1 pad TOP ASDIRECTED PRN bisacodyL [Dulcolax] 10 mg RECTAL ONETIME PRN Assess Lochia [WOMSER] Per Unit Routine Assess Uterine Involution [WOMSER] Per Unit Routine Breast Pump [WOMSER] Per Unit Routine Ice Therapy [OM.PC] Per Unit Routine Perineal Care [OM.PC] Per Unit Routine Peripheral IV Discontinue [OM.PC] Routine Sitz Bath [OM.PC] Per Unit Routine 07/18/19 11:39 Cooling Warming Measures [RC] ASDIRECTED 07/19/19 09:00 Ready for Discharge [RC] PER UNIT ROUTINE - Assessment Assessment:: 24yo PPD1 s/p @39w2d. Stable and recovering well. - Plan Plan:: Hgb 10.5, minimal bleeding, denies s/s of anemia. Advise patient to continue with iron supplements and PNV daily. Minimal pain Ambulating and tolerating PO Bottlefeeding Anticipate discharge home today.
[2019-07-19 09:47] VITALS: BP 108/62; PULSE 61
[2019-07-19] MEDS: Ibuprofen 800 MG Tab PO PRN (13:15)
== END 2019-07-19 13:50 | disposition home or self-care (01) | DRG 807 ==
LOC: UNDOADMOB 20:51 → MW.OB 20:51 → OBSVTOIN 07-18 11:18 → INTOOBSV 07-18 11:18 → MW.OB 07-18 11:38 → OBSVTOIN 07-18 11:38 → MW.OB 07-18 14:27
PROVIDERS: ADMIT Obstetrics & Gynecology; ATTEND Obstetrics & Gynecology
PROC: 10E0XZZ Delivery of Products of Conception, External Approach (ICD-10-PCS; principal; 2019-07-18)
PROC: 10907ZC Drainage of Amniotic Fluid, Therapeutic from Products of Conception, Via Natural or Artificial Opening (ICD-10-PCS; 2019-07-18)
PROC: 3E0R3BZ Introduction of Anesthetic Agent into Spinal Canal, Percutaneous Approach (ICD-10-PCS; 2019-07-18)
PROC: 00HU33Z Insertion of Infusion Device into Spinal Canal, Percutaneous Approach (ICD-10-PCS; 2019-07-18)
DX: O80 Encounter for full-term uncomplicated delivery (principal); Z37.0 Single live birth; Z3A.39 39 weeks gestation of pregnancy
CPT/HCPCS: 01967; 36415; 51702; 59025; 59409; 80053; 85014; 85018; 85027; 86156; 86592; 86593; 86850; 86900; 86901; 86922; A9270-GY; J2590; J7120